=== PATIENT | female | born 1975 | race Caucasian/White ===

== ENCOUNTER 2017-01-07 11:01 | Emergency (ER) ==
[2017-01-07 11:09] VITALS: BP 127/81; TEMP 97.5; BMI 21.2
[2017-01-07 12:19] LABS: BASOPHILS # (AUTO) 0.1 K/uL (0-0.2); BASOPHILS % (AUTO) 0.6 % (0.0-3.0); EOSINOPHILS # (AUTO) 0.1 K/ul (0.0-0.7); HEMATOCRIT 38.9 % (37.0-47.0); HEMOGLOBIN 12.4 g/dl (12.0-16.0); IMMATURE GRANULOCYTE % (AUTO) 0.2 % (0.0-5.0); LYMPHOCYTES # (AUTO) 1.6 K/uL (0.60-3.4); MEAN CORPUSCULAR HEMOGLOBIN 25.4 pg (27.0-31.0); MEAN CORPUSCULAR HGB CONC 31.9 (31.8-35.4); MEAN CORPUSCULAR VOLUME 79.6 fl (81.0-99.0); MONOCYTES # (AUTO) 0.8 K/uL (0.4-2.0); MONOCYTES % (AUTO) 9.2 (0-10); NEUTROPHILS # (AUTO) 6.3 K/ul (2.0-6.9); PLATELET COUNT 333 10^3/uL (140-440); RED BLOOD COUNT 4.89 10^6/ul (4.20-5.40)
--- NOTE | 2017-01-07 12:53 | CT ---
EXAM: CT Head HISTORY: Right-sided weakness COMPARISON: 03/28/2015 TECHNIQUE: CT head performed without contrast FINDINGS: There is no mass effect, midline shift, or intracranial hemmorhage. [place] white different iation is preserved. There is no extra-axial collection. The ventricles, sulci, and basal cisterns are patent and symmetric. There is no depressed calvarial fracture. The mastoid air cells are marissa ar. The visualized paranasal sinuses are clear. IMPRESSION: No acute intracranial abnormality. Findings called to Dr. Preciado 12:47 p.m. 12/18/2016
[2017-01-07 12:58] LABS: ALANINE AMINOTRANSFERASE 17 U/L (12-78); ALBUMIN 4.1 g/dL (3.4-5.0); ALBUMIN/GLOBULIN RATIO 1.17; ALKALINE PHOSPHATASE 78 U/L (42-98); ASPARTATE AMINO TRANSFERASE 20 U/L (15-37); BLOOD UREA NITROGEN 10 mg/dL (7-18); BUN/CREATININE RATIO 11.76; CALCIUM 9.2 mg/dL (8.2-10.2); CARBON DIOXIDE 23 mmol/L (21-32); CHLORIDE 108 mmol/L (98-107); CREATINE KINASE 74 U/L; CREATININE 0.85 mg/dL (0.60-1.30); GLUCOSE 99 mg/dL (70-110); SODIUM 139 mmol/L (136-145); TOTAL PROTEIN 7.6 g/dL (6.4-8.2)
--- NOTE | 2017-01-07 13:23 | ED.PDOC ---
General ED Provider: Dr. ANGELA DUMAS Chief Complaint: Extremity Swelling/Pain Stated Complaint: right hand and right leg tigness anxious Time Seen by Physician: 11:00 (seen with marissa at all times ) Mode of Arrival: Walk-In Information Source: Patient Exam Limitations: No limitations Primary Care Provider: KATEY BENNETT Nursing and Triage Documentation Reviewed and Agree: Yes (stated she was anxious during anxious periods gets caropedal spasms) Neurological Complaint Exam - Weakness Complaint/Exam Last Known Well: started last night pt has attacks such as thsi before during TIA ATTACK Duration: 10 HOURS Symptoms Are: Still present (AMBULATORY WITH RIGHT FOOT ROTATED MEDIALY) Timing: Constant Episodes Lasting: Hours Initial Severity: Mild Current Severity: Mild Character: Denies: Head spinning, Room spinning, Lightheaded, Weak, Dizzy, Unable to describe Aggravating: Reports: None Alleviating: Reports: None Associated Signs and Symptoms: Denies: Nausea, Vomiting, Diaphoresis, Tinnitus, Chest pain, Short of air, Palpitations, Unsteady gait, GI blood loss, Visual changes, Decreased oral intake, Change in medication, Change in diet, OTC meds, Loss of balance Related History: Similar episode (TIA) CVA Risk Factors: Reports: Hypertension JVD Present: No Carotid Bruit Present: No Rectal Heme Positive: No Nystagmus Present: No Gag Reflex Present: Yes Meningeal Signs Positive: No Focal Weakness: Present: None Focal Sensory Loss: Present: None Gait: Normal Babinski Sign: Negative Right, Negative Left Quality Indicators for Cardiac Chest Pain: EKG in 10min. Quality Indicators for AMI: EKG in 10min. Review of Systems - Review Of Systems Constitutional: Reports: No symptoms Eyes: Reports: No symptoms Ears, Nose, Mouth, Throat: Reports: No symptoms Respiratory: Reports: No symptoms Cardiac: Reports: No symptoms GI: Reports: No symptoms : Reports: No symptoms Musculoskeletal: Reports: Other (CARPOPEDAL SPASMS RIGHT SIDED ) Skin: Reports: No symptoms Neurological: Reports: No symptoms Endocrine: Reports: No symptoms Hematologic/Lymphatic: Reports: No symptoms All Other Systems: Reviewed and Negative Past Medical History - Past Medical History Endocrine: Reports: None Cardiovascular: Reports: Hypertension Respiratory: Reports: None Hematological: Reports: Anemia Gastrointestinal: Reports: None Genitourinary: Reports: None Neuro/Psych: Reports: Migraine Musculoskeletal: Reports: None Cancer: Reports: None Last Menstrual Period: na - Surgical History General Surgical History: Reports: Unknown - Family History Family History: Reports: Unknown - Social History Smoking Status: Never smoker Hx Substance Use: No Alcohol Screening: None - Immunizations Tetanus Shot up to Date: Yes Physical Exam - Physical Exam Appearance: Well-appearing, No pain distress, Well-nourished Eyes: FRANCISCO JAVIER, EOMI, Conjunctiva clear ENT: Ears normal, Nose normal, Oropharynx normal Respiratory: Airway patent, Breath sounds clear, Breath sounds equal, Respirations nonlabored Cardiovascular: RRR, Pulses normal, No rub, No murmur GI/: Soft, Nontender, No masses, Bowel sounds normal, No Organomegaly Musculoskeletal: Normal strength, ROM intact, No edema, No calf tenderness Skin: Warm, Dry, Normal color Neurological: Sensation intact, Motor intact, Reflexes intact, Cranial nerves intact, Alert, Oriented Psychiatric: Affect appropriate, Mood appropriate Interpretation - Radiology Interpretation Radiology Interpretation By: Radiologist Radiology Results: No acute changes Critical Care Note - Critical Care Note Total Time (mins): 0 Course - Course Hematology/Chemistry: 01/07/17 12:10 01/07/17 12:10 Orders, Labs, Meds: Lab Review 01/07/17 12:10 WBC 8.90 RBC 4.89 Hgb 12.4 Hct 38.9 MCV 79.6 L MCH 25.4 L MCHC 31.9 RDW Coeff of Elvia 15.5 H Plt Count 333 Immature Gran % (Auto) 0.2 Neut % (Auto) 71.0 Lymph % (Auto) 18.0 [place] % (Auto) 9.2 Eos % (Auto) 1.0 Baso % (Auto) 0.6 Immature Gran # (Auto) 0.0 Neut # 6.3 Lymph # 1.6 [place] # 0.8 Eos # 0.1 Baso # 0.1 Sodium 139 Potassium 4.0 Chloride 108 H Carbon Dioxide 23 Anion Gap 12.0 BUN 10 Creatinine 0.85 Estimated GFR (MDRD) 73.00 BUN/Creatinine Ratio 11.76 Glucose 99 Calcium 9.2 Total Bilirubin 0.70 AST 20 ALT 17 Alkaline Phosphatase 78 Total Creatine Kinase 74 Troponin I < 0.0100 Total Protein 7.6 Albumin 4.1 Globulin 3.5 Albumin/Globulin Ratio 1.17 TSH 3.960 Free T4 0.87 Orders Category Date Time Status EKG-(ED ONLY) Stat CARDIO 01/07/17 12:03 Ordered CBC W/ AUTO DIFF Stat LAB 01/07/17 12:10 Completed COMPREHENSIVE METABOLIC PANEL Stat LAB 01/07/17 12:10 Completed CREATINE KINASE Stat LAB 01/07/17 12:10 Completed FREE T4 (FREE THYROXINE) Stat LAB 01/07/17 12:10 Completed THYROID STIMULATING HORMONE Stat LAB 01/07/17 12:10 Completed TROPONIN I Stat LAB 01/07/17 12:[address] HEAD W/O CONTRAST Stat RADS 01/07/17 12:03 Completed Vital Signs: Temp Pulse Resp BP Pulse Ox 01/07/17 11:01 97.5 F L 97 H 16 127/81 93 L Departure - Departure Time of Disposition: 13:25 (WITH MARISSA IN THE ROOM I DISCUSSED ADMISSION AND NEURO CHECK SERIALY BUT THE PT DECLINED STROKE DISCUSSED IN FULL DETAIL STILL PT REFUSE . UPON D/C NO NEURO DEFICITS NOTED SPASAM REMAINED .PT REFUSING ADMITT) Disposition: AMA Discharge Problem: Carpopedal spasm Instructions: [place]edal Spasm (ED) Condition: Good Pt referred to PMD for follow-up: No Additional Instructions: Please call your Family Physician as soon as possible to schedule a follow-up appointment. Allergies/Adverse Reactions: Allergies hydrocodone bitartrate [From Lortab] Adverse Reaction (Verified 09/17/15 20:43) Home Medications: Ambulatory Orders 1 [No Reported Medications] 01/07/17
== END 2017-01-07 13:45 | disposition left against medical advice (07) ==
LOC: ED 11:01
DX: R29.0 Tetany (principal); R60.0 Localized edema; F41.9 Anxiety disorder, unspecified
CPT/HCPCS: 36415; 80053; 82550; 84439; 84443; 84484; 85025; 93005; 93010; 99283

== ENCOUNTER 2018-03-04 15:47 | Observation (INO) ==
[2018-03-04] MEDS ORDERED: ATIVAN PO STA (15:50)
[2018-03-04] MEDS ORDERED: XANAX PO STA (15:58)
[2018-03-04 17:18] VITALS: BMI 20.9
[2018-03-04] MEDS: SODIUM CHLORIDE 1,000 ML IV SCH (19:24)
[2018-03-04] MEDS ORDERED: DECADRON 4 MG/ML SDV IM STA (22:50)
[2018-03-04] MEDS ORDERED: DECADRON 4 MG/ML SDV IV STA (22:50)
[2018-03-04] MEDS ORDERED: TORADOL IVP STA (22:53)
--- NOTE | 2018-03-04 22:56 | CT ---
EXAM: CT brain without contrast HISTORY: Left leg numbness TECHNIQUE: CT of the brain without intravenous contrast FINDINGS: There is no acute hemorrhage midline shift or mass effect. No hydrocephalus or abnormal e xtra-axial fluid collection. No significant parenchymal attenuation abnormality. The bony cranium a ppears normal. The visualized paranasal sinuses are clear. Soft tissues without significant abnormali ty. IMPRESSION: 1. CT of the brain within normal limits.
[2018-03-04] MEDS: FLEXERIL PO SCH (23:27)
[2018-03-05] MEDS: FLEXERIL PO SCH ×2 (08:17→20:13)
--- NOTE | 2018-03-05 08:33 | DI ---
EXAM: Lumbar spine three view HISTORY: Lower back pain COMPARISON: None TECHNIQUE: Three views lumbar spine were performed FINDINGS: Sacroiliac joints intact. Sacral arcuate intact. Vertebral bodies normal height. No fra cture. No subluxation. Small multilevel marginal osteophytes. Intervertebral disc spaces maintaine d. Suggestion of facet arthrosis in the lower lumbar spine. IMPRESSION: Mild chronic discogenic degenerative disease and facet arthrosis.
[2018-03-05] MEDS ORDERED: DECADRON 4 MG/ML SDV IM STA (08:41)
[2018-03-05] MEDS: ROCEPHIN 1 GM in SODIUM CHLORIDE 50 ML IV SCH (09:09)
[2018-03-05] MEDS: SODIUM CHLORIDE 1,000 ML IV SCH (11:07)
[2018-03-05] MEDS: XANAX PO SCH ×2 (11:10→20:13)
[2018-03-06] MEDS: SODIUM CHLORIDE 1,000 ML IV SCH (00:14)
[2018-03-06] MEDS: FLEXERIL PO SCH (08:15)
[2018-03-06] MEDS: XANAX PO SCH (08:16)
[2018-03-06] MEDS: ROCEPHIN 1 GM in SODIUM CHLORIDE 50 ML IV SCH (08:16)
[2018-03-06 10:10] VITALS: BP 117/80; TEMP 97.5
--- NOTE | 2018-03-06 13:07 | PN ---
DATE OF SERVICE: 03/05/18 SUBJECTIVE: The patient had acute spasm of the left lower extremity that she could not walk. There is some range of motion increased. CT scan did not show any stroke, still having some difficulty walking and she is limping. REVIEW OF SYSTEMS: CONSTITUTIONAL: No fever, no chills. HEENT: Normal. ENDOCRINE: No weight gain, no weight loss. CVS: No angina symptoms. No CHF symptoms. No palpitations. No atypical chest pain for CAD. No shortness of breath. No PND, no orthopnea. RESPIRATORY: No cough, no hemoptysis. GI: No nausea, no vomiting. No abdominal pain. : No hematuria. No polyuria. MUSCULOSKELETAL: Difficulty walking, limping. PSYCHIATRIC: Not anxious. No depression. No suicidal thoughts. No homicidal thoughts. SKIN: Intact. No rash. PHYSICAL EXAMINATION: V/S: BP 105/70, respiratory rate 16, heart rate 83, temperature 97.8, saturation 100%. HEENT: Normocephalic, atraumatic. Mucosa dry. NECK: Supple. No JVD, no carotid bruit. No lymphadenopathy. LUNGS: Clear to auscultation. No rales or rhonchi. HEART: S1, S2 normal. No S3. No murmur, gallop or regurgitation. ABDOMEN: Soft, nontender. Bowel sounds active. No rigidity. No rebound or guarding. No CVA tenderness. EXTREMITIES: Left lower extremity range of motion is decreased at the knee and ankle, very stiff. No cyanosis, clubbing or pedal edema. MUSCULOSKELETAL: No joint swelling. NEUROLOGIC: Awake, alert. No focal deficit. LYMPHATIC: No lymph nodes palpable. SKIN: Intact. LABS: White count 6.91, hemoglobin 10.8, hematocrit 34.3, platelet count 356. Sodium 137, potassium 4.6, chloride 106, bicarb 24, BUN 6, creatinine 0.76, glucose 142. ASSESSMENT: 1. ACUTE SPASMATIC REACTION LEFT LOWER EXTREMITY NUMBNESS AND WEAKNESS. 2. GENERALIZED ANXIETY DISORDER 3. CHOLECYSTECTOMY 4. APPENDECTOMY 5. PF4 REPAIR PLAN: 1. Toradol 2. Decadron 3. Cyclobenzaprine 4. Xanax 0.5 mg twice a day TIME SPENT: More than 35 minutes today MTDD
--- NOTE | 2018-03-06 17:02 | PCM.HOSP ---
- Observation Care Discharge [id number] OBS Care Discharge (09378): 03/06 - Initial Observation Care [id number] High Complexity 70 Minutes (09140): 03/04 - Subsequent Observation Care [id number] 35 Minutes per Day (02138): 03/05
--- NOTE | 2018-03-07 10:15 | DS ---
DATE OF SERVICE: 03/06/18 FINAL DIAGNOSIS: 1. Left lower extremity weakness and numbness 2. Acute spasmatic reaction 3. Anemia most likely from hemodilution 4. Anxiety disorder 5. Panic attacks 6. Osteoarthritis 7. Appendectomy 8. Cholecystectomy 9. History of PF4 repair, 2012 10. Precise stent, foraminal wall repair 11. Hypothyroidism 12. UTI organism E-coli DISCHARGE INSTRUCTIONS: Discharge the patient home. Followup in the [facility] within 5-7 days. Please do not take Aspirin, Aleve, Advil and Ibuprofen. MEDICATIONS AT DISCHARGE/NEW PRESCRIPTIONS: Macrobid 200mg one tablet twice a day for 7 days. Flexeril 5mg twice a day Mobic 7.5mg PO twice a day DIET INSTRUCTIONS: Cardiac and healthy diet ACTIVITY: As much as tolerated DISEASE SPECIFIC EDUCATION: Anxiety disorder Spasmatic reaction Medication side effects been discussed HOSPITAL COURSE: Alix Rosales who is a 42 year old female came to the office for the left leg weakness and numbness and not able move. The patient stated it started almost three days ago, says that she could not bend left knee and ankle but she does have range of motion left hip area. Given her age and risk of the stroke the patient was admitted to the observation. CT head was negative. The patient was given Toradol, muscle relaxant which did improvement somewhat pain. We did get an x-ray of the lumbar spine which showed some arthritic changes. Gradually range of motion was getting better with anxiety medication Toradol and steroids. Up and about and started walking. As the patient been doing good and did not have any complications she is being discharged home. TIME SPENT: MORE THAN 65 MINUTES MTDD
== END 2018-03-06 11:00 | disposition home or self-care (01) ==
LOC: MEDSURG A 15:47
PROVIDERS: ADMIT Emergency Medicine; ATTEND Emergency Medicine
DX: R53.1 Weakness (principal); R20.0 Anesthesia of skin; D64.9 Anemia, unspecified; F41.9 Anxiety disorder, unspecified; F41.0 Panic disorder [episodic paroxysmal anxiety]; N39.0 Urinary tract infection, site not specified; B96.20 Unspecified Escherichia coli [E. coli] as the cause of diseases classified elsewhere
CPT/HCPCS: 36415; 80053; 80306; 81001; 81025; 82550; 84484; 85025; 87086; 87186; 93005; 93010

== ENCOUNTER 2018-03-21 13:03 | Outpatient (CLI) ==
--- NOTE | 2018-03-22 09:54 | MAMMO ---
EXAM: Bilateral digital screening mammogram (2-D and 3-D) History: Screening Comparison: Bilateral mammogram 05/08/2014 Findings: MLO and CC views of bilateral breasts demonstrate heterogeneously dense breast parenchyma which can obscure small lesions. CAD was reviewed by the radiologist. Tomosynthesis was performed. There are no dominant masses, no suspicious microcalcifications and no architectural distortions Impression: Stable negative mammogram. Recommend followup routine screening mammography in 1 year. BIRADS 1
== END 2018-03-21 13:04 ==
LOC: RAD 13:03
PROVIDERS: ATTEND Emergency Medicine
DX: Z12.31 Encounter for screening mammogram for malignant neoplasm of breast (principal)
CPT/HCPCS: 77067

== ENCOUNTER 2018-06-17 13:48 | Outpatient (CLI) | END 2018-06-17 13:49 | disposition home or self-care (01) | LOC: RHC-LAB 13:48 | PROVIDERS: ATTEND Nurse Practitioner Family | DX: F41.9 Anxiety disorder, unspecified (principal); G47.00 Insomnia, unspecified; F43.9 Reaction to severe stress, unspecified; F41.0 Panic disorder [episodic paroxysmal anxiety] | CPT/HCPCS: 36415; 80053; 80061; 84443; 85025 ==

== ENCOUNTER 2018-09-30 09:40 | Outpatient (CLI) | END 2018-09-30 09:41 | disposition home or self-care (01) | LOC: RHC-LAB 09:40 | PROVIDERS: ATTEND Nurse Practitioner Family | DX: D64.9 Anemia, unspecified (principal); F41.9 Anxiety disorder, unspecified; E78.5 Hyperlipidemia, unspecified | CPT/HCPCS: 36415; 80053; 80061; 85025 ==

== ENCOUNTER 2018-12-30 07:58 | Outpatient (CLI) | END 2018-12-30 07:59 | disposition home or self-care (01) | LOC: RHC-LAB 07:58 | PROVIDERS: ATTEND Nurse Practitioner Family | DX: D64.9 Anemia, unspecified (principal); F41.9 Anxiety disorder, unspecified; E78.00 Pure hypercholesterolemia, unspecified | CPT/HCPCS: 36415; 80053; 80061; 85025 ==